=== PATIENT | male | born 1965 | race Two or more races ===

== ENCOUNTER 2017-05-25 13:22 | Emergency (ER) | payer SELFPAY ==
[2017-05-25 13:43] VITALS: BP 149/109; PULSE 110; TEMP 97.8; BMI 29.2
[2017-05-25] MEDS ORDERED: KETOROLAC TROMETHAMINE 60 MG/2 ML VIAL IM ONE (15:09)
[2017-05-25] MEDS ORDERED: diazePAM 5 MG TABLET PO ONE (15:10)
[2017-05-25] MEDS ORDERED: DEXAMETHASONE SOD PHOSPHATE 10 MG/1 ML VIAL IM ONE (15:11)
[2017-05-25] MEDS ORDERED: diazePAM 5 MG TABLET ONE (15:17)
[2017-05-25] MEDS ORDERED: KETOROLAC TROMETHAMINE 60 MG/2 ML VIAL ONE ×2 (15:17→15:24)
[2017-05-25] MEDS ORDERED: DEXAMETHASONE SOD PHOSPHATE 10 MG/1 ML VIAL ONE (15:17)
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
[2017-05-28 00:07] LABS: HBSAG SCREEN Negative (Negative); HEP A AB, IGM Negative (Negative); HEP B CORE AB, TOT Negative (Negative)
== END 2017-05-25 16:23 | disposition home or self-care (01) ==
LOC: JER 13:22 → JERFT 13:22
PROC: 3E033GC Introduction of Other Therapeutic Substance into Peripheral Vein, Percutaneous Approach (ICD-10-PCS; principal; 2017-05-25)
PROC: 3E0233Z Introduction of Anti-inflammatory into Muscle, Percutaneous Approach (ICD-10-PCS; 2017-05-25)
DX: M54.5 Low back pain (principal)
CPT/HCPCS: 36415; 84460; 86704; 86706; 86708; 86803; 87340; 87389; 99281-25